=== PATIENT | male | born 1990 | race Two or more races ===

== ENCOUNTER 2018-01-28 12:41 | Emergency (ER) | payer SELFPAY ==
[2018-01-28] MEDS: IPRATRPIUM/ALBUTEROL 0.5/2.5MG 3 ML NEBU. NEB (14:57)
[2018-01-28 15:02] LABS: INFLUENZA A PATIENT NEGATIVE (NEGATIVE); INFLUENZA B PATIENT NEGATIVE (NEGATIVE); OBC FLU VALID
== END 2018-01-28 15:30 | disposition home or self-care (01) ==
LOC: ER 12:41
DX: J40 Bronchitis, not specified as acute or chronic (principal)
CPT/HCPCS: 87804; 87804-59; 94640; 99284; J7620